=== PATIENT | male | born 1950 | race Caucasian/White ===

== ENCOUNTER → 2016-04-25 | Outpatient (CLI) | payer MEDICARE ==
[2016-04-25 09:25] LABS: CH 31.6; CHCM 33.9; HCT 44.2 % (39.0-53.0); HDW 2.89; MCH 31.8 pg (25.0-35.0); MCHC 33.9 g/dL (31.0-37.0); MCV 93.7 fL (80.0-100.0); Mean Platelet Volume 8.3; RBC 4.72 m/uL (4.30-5.90); RDW 12.9 % (11.5-15.5); WBC 5.6 k/uL (3.8-10.6)
[2016-04-25 09:50] LABS: ALT 36 U/L (21-72); AST 25 U/L (17-59); Alkaline Phosphatase 48 U/L (38-126); Anion Gap 13 mmol/L; Blood Urea Nitrogen 21 mg/dL (9-20); Calcium 9.4 mg/dL (8.4-10.2); Carbon Dioxide 28 mmol/L (22-30); Chloride 102 mmol/L (98-107); Glucose 129 mg/dL (74-99); Non-African American GFR(MDRD) >60 (>60 ml/min/1.73 sqM); Potassium 4.5 mmol/L (3.5-5.1); Sodium 143 mmol/L (137-145); Total Bilirubin 0.6 mg/dL (0.2-1.3)
== END | disposition home or self-care (01) ==
LOC: LABPAT 08:37
PROVIDERS: ATTEND Podiatrist Foot & Ankle Surgery
DX: Z01.818 Encounter for other preprocedural examination (principal)
CPT/HCPCS: 80053; 85027

== ENCOUNTER → 2016-08-20 | Outpatient (CLI) | payer MEDICARE ==
[2016-08-20 08:58] LABS: CH 31.5; CHCM 34.7; HDW 2.93; HGB 15.4 gm/dL (13.0-17.5); MCHC 35.1 g/dL (31.0-37.0); MCV 91.2 fL (80.0-100.0); Mean Platelet Volume 7.5; RBC 4.82 m/uL (4.30-5.90); RDW 13.2 % (11.5-15.5); WBC 5.9 k/uL (3.8-10.6)
[2016-08-20 10:35] LABS: ALT 45 U/L (21-72); AST 27 U/L (17-59); Alkaline Phosphatase 55 U/L (38-126); Anion Gap 11 mmol/L; Blood Urea Nitrogen 23 mg/dL (9-20); Calcium 9.7 mg/dL (8.4-10.2); Carbon Dioxide 27 mmol/L (22-30); Chloride 104 mmol/L (98-107); Cholesterol 131 mg/dL (<200); Glucose 114 mg/dL (74-99); HDL Cholesterol 48 mg/dL (40-60); Non-African American GFR(MDRD) >60 (>60 ml/min/1.73 sqM); Potassium 4.6 mmol/L (3.5-5.1); Sodium 142 mmol/L (137-145); Total Bilirubin 0.6 mg/dL (0.2-1.3); Total Protein 6.8 g/dL (6.3-8.2); Triglycerides 90 mg/dL (<150)
[2016-08-20 10:48] LABS: Hemoglobin A1C 6.6 % (4.2-6.1)
[2016-08-20 11:03] LABS: Prostate Specific Antigen 1.77 ng/mL (0.00-4.00)
== END | disposition home or self-care (01) ==
LOC: LABWHC1 08:33
PROVIDERS: ATTEND Internal Medicine
DX: E78.2 Mixed hyperlipidemia (principal); E11.69 Type 2 diabetes mellitus with other specified complication; R35.1 Nocturia; I10 Essential (primary) hypertension; E87.8 Other disorders of electrolyte and fluid balance, not elsewhere classified
CPT/HCPCS: 36415; 80053; 80061; 83036; 84153; 85027

== ENCOUNTER → 2017-02-24 | Outpatient (CLI) | payer MEDICARE ==
[2017-02-24 09:18] LABS: Anion Gap 10 mmol/L; Blood Urea Nitrogen 21 mg/dL (9-20); Calcium 10.1 mg/dL (8.4-10.2); Carbon Dioxide 30 mmol/L (22-30); Chloride 99 mmol/L (98-107); Cholesterol 160 mg/dL (<200); Glucose 123 mg/dL (74-99); HDL Cholesterol 55 mg/dL (40-60); LDL Cholesterol,Calculated 94 mg/dL (0-99); Potassium 5.3 mmol/L (3.5-5.1); Sodium 139 mmol/L (137-145); Triglycerides 57 mg/dL (<150)
[2017-02-24 19:46] LABS: Hemoglobin A1C 6.4 % (4.0-6.0)
== END | disposition home or self-care (01) ==
LOC: LABWHC1 08:13
PROVIDERS: ATTEND Internal Medicine
DX: E78.4 Other hyperlipidemia (principal); E87.8 Other disorders of electrolyte and fluid balance, not elsewhere classified; E11.65 Type 2 diabetes mellitus with hyperglycemia
CPT/HCPCS: 36415; 80048; 80061; 83036

== ENCOUNTER → 2017-08-03 | Outpatient (CLI) | payer MEDICARE ==
--- NOTE | 2017-08-03 14:20 | CT ---
EXAMINATION TYPE: CT angio chest DATE OF EXAM: 08/03/2017 COMPARISON: 07/22/2012 HISTORY: Follow up aortic repair CT DLP: 746.3 mGycm. Automated Exposure Control for Dose Reduction was Utilized. CONTRAST: CTA scan of the thorax is performed with IV Contrast, patient injected with 100 mL of Isovue 370, pul monary embolism protocol. MIP Images are created on CT scanner and reviewed. FINDINGS: LUNGS: There is a benign calcified left upper lobe granuloma with additional 2 mm multiple scattered nodules adjacent to this on series 7 image 19. These are unchanged dating back to 2012 and should be considered benign. No new pulmonary masses seen. No focal consolidation. There is no pleural effusion or pneumothorax seen. The tracheobronchial tree is patent. MEDIASTINUM: High density graft material is seen within the ascending thoracic aorta from known ascen ding thoracic aortic aneurysmal repair with mediastinal surgical clips. There is no evidence of recur rence of the ascending thoracic aortic aneurysm as the ascending thoracic aorta measures 2.9 cm in si ze. The aortic root measures 3.8 cm and is upper limits of normal in the aortic arch is within normal limits measuring 3.1 cm. The descending thoracic aorta is also within normal limits measuring 2.7 cm . There is no evidence for extravasation or dissection. There is normal variant direct origin of the left vertebral artery from the aortic arch. There is no CT evidence for central pulmonary embolism. There are no greater than 1 cm hilar or medi astinal lymph nodes. No cardiomegaly or pericardial effusion is seen. Median sternotomy wires are p resent. OTHER: There is partial visualization of ar at least 6.4 cm exophytic left renal cyst and other anter ior superior cortical left renal lesion that is too small to accurately characterize. Multiple benign splenic and hepatic parenchymal granulomas are seen. Pancreatic atrophy is mild. Small hiatal hernia is noted. Mild multilevel degenerative changes of the thoracic spine are seen. IMPRESSION: 1. No evidence of recurrence of the previously surgically repaired ascending thoracic aortic aneurysm as the thoracic aorta now measures 2.9 cm, within normal limits. The aortic root is noted to be uppe r limits of normal measuring 3.8 cm. 2. Benign granulomatous changes of the spleen, left upper lobe, and liver.
== END | disposition home or self-care (01) ==
LOC: RADCTMAIN 12:55
PROVIDERS: ATTEND Internal Medicine Interventional Cardiology
DX: I71.2 Thoracic aortic aneurysm, without rupture (principal); Z98.890 Other specified postprocedural states
CPT/HCPCS: 82565; 84520; 71275; 36415; Q9967

== ENCOUNTER → 2017-08-26 | Outpatient (CLI) | payer MEDICARE ==
[2017-08-26 08:43] LABS: HCT 44.1 % (39.0-53.0); HGB 14.9 gm/dL (13.0-17.5); MCH 31.2 pg (25.0-35.0); MCHC 33.8 g/dL (31.0-37.0); MCV 92.3 fL (80.0-100.0); Mean Platelet Volume 7.3; Platelet Count 169 k/uL (150-450); RBC 4.78 m/uL (4.30-5.90); RDW 13.2 % (11.5-15.5); WBC 5.1 k/uL (3.8-10.6)
[2017-08-26 11:29] LABS: Albumin 4.2 g/dL (3.5-5.0); Calcium 9.6 mg/dL (8.4-10.2); Potassium 4.5 mmol/L (3.5-5.1); Total Bilirubin 0.5 mg/dL (0.2-1.3); Total Protein 6.6 g/dL (6.3-8.2)
[2017-08-26 11:54] LABS: Prostate Specific Antigen 1.69 ng/mL (0.00-4.00)
[2017-08-26 17:19] LABS: Hemoglobin A1C 6.5 % (4.0-6.0)
== END | disposition home or self-care (01) ==
LOC: LABWHC1 08:12
PROVIDERS: ATTEND Internal Medicine
DX: E87.5 Hyperkalemia (principal); E78.2 Mixed hyperlipidemia; E11.69 Type 2 diabetes mellitus with other specified complication; Q23.1 Congenital insufficiency of aortic valve
CPT/HCPCS: 36415; 80053; 80061; 83036; 84153; 85027

== ENCOUNTER 2021-04-28 18:54 | Emergency (ER) | payer MEDICARE ==
[2021-04-28 20:43] VITALS: BP 129/85; PULSE 70; RESP 17; TEMP 97.8
--- NOTE | 2021-04-28 21:20 | XR ---
EXAMINATION TYPE: XR hand complete RT DATE OF EXAM: 04/28/2021 COMPARISON: NONE HISTORY: Pain TECHNIQUE: 3 views FINDINGS: There is narrowing and mild spurring at the second and third MP joints. There is minimal walters bluxation. There is no osteoporosis. There is mild spurring at the first carpometacarpal joint. I see no fracture nor dislocation. IMPRESSION: There is some osteoarthritis. No fracture seen.
--- NOTE | 2021-04-28 21:22 | CT ---
EXAMINATION TYPE: CT brain autumnine wo con DATE OF EXAM: 04/28/2021 COMPARISON: None HISTORY: fall CT DLP: combined DLP 1146.6 mGycm Automated exposure control for dose reduction was used. Images of the brain and cervical spine obtained without contrast. There is cerebral cortical atrophy. There is no mass effect or midline shift. There is no sign of int racranial hemorrhage. The calvarium is intact. There is small areas of hypodensity in the white matte r of the internal capsule bilaterally. The cervical vertebra have normal alignment. No compression fracture. There is narrowing at C3-4 and C6-7 disc spaces with spur formation. Facet joints are intact. There is no compression fracture. Skul l base is intact. There is normal aeration of the mastoid sinuses. I see no focal bone destruction. IMPRESSION: Multilevel cervical spondylotic changes. No fracture seen. Cerebral atrophy and chronic small vessel ischemia. No acute intracranial abnormality.
--- NOTE | 2021-04-28 21:24 | CT ---
EXAMINATION TYPE: CT facial bones wo con DATE OF EXAM: 04/28/2021 COMPARISON: None HISTORY: fall CT DLP: combined DLP 1146.6 mGycm Automated exposure control for dose reduction was used. Images obtained from the bottom of the mandible to the top of the frontal sinuses without contrast. The mandibular ring is intact. Temporomandibular joints are intact. Zygomatic arches appear normal. T here is mucosal thickening and mucous retention cysts in the maxillary sinuses. Nasal bone appears in tact. Orbital margins are intact. There is no evidence of orbital blowout fracture. There is no retro -orbital mass. There is fairly normal aeration of the frontal and ethmoid and sphenoid sinuses. The m axilla is intact. Facial soft tissues are intact. IMPRESSION: There are mucous retention cysts in the maxillary sinuses. No evidence of traumatic injury of the fac ial bones. No fracture.
[2021-04-28] MEDS ORDERED: OXYMETAZOLINE 0.05% NASL SPRAY 1 SPRAY BOTTLE NASAL STA (21:49)
[2021-04-28] MEDS ORDERED: DIPH,PERTUS(ACELL)TETVAC-LF 0.5 ML VIAL IM ONE (21:50)
[2021-04-28] MEDS ORDERED: ACETAMINOPHEN TAB 500 MG TAB PO STA (21:51)
--- NOTE | 2021-04-28 21:58 | ED ---
Fall HPI - General Chief Complaint: Fall Stated Complaint: fall Time Seen by Provider: 04/28/21 21:38 Source: patient, family Mode of arrival: ambulatory - History of Present Illness Initial Comments: Return to the emergency department if needed this is a pleasant 70-year-old male history of hypertension and hyperlipidemia. Takes occasional aspirin but on no blood thinners. Sustained a mechanical fall after tripping. Struck his face on pavement. No loss of consciousness, sustained abrasions to his face as well as a bloody nose. Also some abrasions to his right hand. Denies any neck pain or back pain. There was no preceding symptomology. No symptoms of syncope. Has no bleeding disorder or blood dyscrasias. Denies focal weakness. No vision or hearing disturbance. No numbness or tingling. No abdominal pain. No nausea or vomiting. MD Complaint: fall When Fall Occurred: 1-3 hours [employer] - Related Data Allergies Allergy/AdvReac Type Severity Reaction Status Date / Time acetaminophen [From Vicodin] Allergy Nausea & Verified 04/28/21 20:36 Vomiting hydrocodone [From Vicodin] Allergy Nausea & Verified 04/28/21 20:36 Vomiting Iodinated Contrast Media Allergy Nausea & Verified 04/28/21 20:36 Vomiting & Diarrhea Review of Systems ROS Statement: Those systems with pertinent positive or pertinent negative responses have been documented in the HPI. ROS Other: All systems not noted in ROS Statement are negative. Past Medical History Past Medical History: Hyperlipidemia, Hypertension History of Any Multi-Drug Resistant Organisms: None Reported Past Surgical History: Heart Catheterization, Orthopedic Surgery, Tonsillectomy Additional Past Surgical History / Comment(s): catarats Past Psychological History: No Psychological Hx Reported Smoking Status: Never smoker Past Alcohol Use History: None Reported Past Drug Use History: None Reported General Exam - General Exam Comments Initial Comments: Healthy-appearing 70-year-old in no acute distress. Cranial nerves II through XII are intact. Patient is alert and oriented 4. Limitations: no limitations General appearance: alert, in no apparent distress Head exam: Present: normocephalic, normal inspection, other (Multiple abrasions to the forehead, nasal area with evidence of epistaxis on the left side. No septal hematoma. No significant tenderness. Extraocular movements are intact. No evidence of entrapment) Eye exam: Present: normal appearance, PERRL, EOMI. Absent: scleral icterus, conjunctival injection, periorbital swelling Pupils: Present: normal accommodation ENT exam: Present: normal exam, normal oropharynx, mucous membranes moist, TM's normal bilaterally, normal external ear exam. Absent: mucous membranes dry Neck exam: Present: normal inspection, full ROM. Absent: tenderness, meningismus, lymphadenopathy Respiratory exam: Present: normal lung sounds bilaterally. Absent: respiratory distress, wheezes, rales, rhonchi, stridor Cardiovascular Exam: Present: regular rate, normal rhythm, normal heart sounds. Absent: systolic murmur, diastolic murmur, rubs, gallop, clicks GI/Abdominal exam: Present: soft, normal bowel sounds. Absent: distended, tenderness, guarding, rebound, rigid Extremities exam: Present: full ROM, normal capillary refill, other (Superficial abrasion to the dorsum right hand, not contaminated). Absent: tenderness, pedal edema, joint swelling, calf tenderness Back exam: Present: normal inspection. Absent: tenderness, paraspinal tenderness, vertebral tenderness Neurological exam: Present: alert, oriented X3, CN II-XII intact, normal gait, reflexes normal, other (Cerebellar testing is normal. No gait disturbance). Absent: altered, abnormal gait, motor sensory deficit Psychiatric exam: Present: normal affect, normal mood Skin exam: Present: warm, dry, intact, normal color. Absent: rash Course Vital Signs 04/28/21 20:36 Temperature 97.8 F Pulse Rate 70 Respiratory 17 Rate Blood Pressure 129/85 O2 Sat by Pulse 97 Oximetry Medical Decision Making - Medical Decision Making Patient presents after mechanical fall. Patient alert and oriented 4, cranial nerves II through XII intact. No evidence of entrapment. Computed tomography scan of the brain, cervical spine, facial bones show no evidence of acute pathology. Right hand x-ray is negative for fracture. Discussed head injury instructions in detail. Patient released with his . All questions answered. Return for follow-up as discussed. Patient and voice understanding. Refrain from aspirin and Motrin for the next few days. Use Tylenol for pain control. Afrin 2 sprays every 12 hours for 3 days. Disposition Clinical Impression: Closed head injury, Epistaxis due to trauma, Facial contusion, Multiple abrasions, Fall Narrative: Mechanical fall Disposition: HOME SELF-CARE Condition: Good Instructions (If sedation given, give patient instructions): Head Injury (ED), Contusion in Adults (ED), Nosebleed (ED) Additional Instructions: Follow the head injury instructions as directed. Wash all the abrasions with warm soap and water. Return to the ER at anytime if any symptoms worsen or proms arise. Use Tylenol for pain control. Use a nasal spray, 2 sprays to both nostrils every 12 hours for 3 days only. Follow-up with your regular physician in [place]. Return here to the ER if needed. We did update your tetanus shot here. Is patient prescribed a controlled substance at d/c from ED?: No Referrals: None,Stated [Primary Care Provider] - 04/29/21 Time of Disposition: 21:52
== END 2021-04-28 22:14 | disposition home or self-care (01) ==
LOC: EC 18:54
DX: S09.90XA Unspecified injury of head, initial encounter (principal); S00.83XA Contusion of other part of head, initial encounter; I10 Essential (primary) hypertension; Z88.6 Allergy status to analgesic agent; Z88.5 Allergy status to narcotic agent; Z91.041 Radiographic dye allergy status; W19.XXXA Unspecified fall, initial encounter
CPT/HCPCS: 70450; 70486; 72125; 90471; 90715; 99284